=== PATIENT | female | born 1985 | race Caucasian/White ===

== ENCOUNTER 2016-07-24 05:31 | Emergency (ER) | payer OTHER ==
[2016-07-24 05:43] VITALS: BMI 23.3
--- NOTE | 2016-07-24 06:33 | PDOC ---
History of Present Illness - General History Source: Patient Exam Limitations: No Limitations - History of Present Illness Initial Comments: 07/24/16 06:50 The patient is a 31 year old female with no significant past medical history who presents to the ED with 1 day of lower abdominal pain. Patient denies nausea , vomiting, or diarrhea. Denies lack of appetite. The patient denies fever, chills, cough, SOB, chest pain, and palpitations. Allergies: NKDA Social History: No alcohol, tobacco, or drug use reported. Past Surgical History: s/p tubal ligation PCP: Dr. Pedrito Monroy <Christianne Melendez - Last Filed: 07/24/16 06:50> <Angie Jones - Last Filed: 07/26/16 03:35> - General Chief Complaint: Pain, Acute Stated Complaint: ABDOMINAL PAIN Time Seen by Provider: 07/24/16 05:33 Past History <Christianne Melendez - Last Filed: 07/24/16 06:50> - Surgical History Abdominal Surgery: Yes (partial lower boel removed) - Reproductive History Is Patient Now?: No - Psycho/Social/Smoking Cessation Hx Suicidal Ideation: No Smoking Status: Yes Smoking History: Never smoked Have you smoked in the past 12 months: No Number of Cigarettes Smoked Daily: 4 Information on smoking cessation initiated: No Hx Alcohol Use: No Drug/Substance Use Hx: No <Angie Jones - Last Filed: 07/26/16 03:35> - Past Medical History Allergies/Adverse Reactions: Allergies Allergy/AdvReac Type Severity Reaction Status Date / Time venom-honey bee Allergy Verified 07/24/16 05:42 [bee venom (honey bee)] Home Medications: Ambulatory Orders Ibuprofen 800 mg PO QID #30 tablet 07/24/16 Nitrofurantoin Monohyd/M-Cryst [Macrobid -] 100 mg PO BID #14 capsule 07/24/16 Review of Systems - Review of Systems Able to Perform ROS?: Yes Comments:: 07/24/16 06:50 CONSTITUTIONAL: Absent: fever, no chills, no fatigue EYES: Absent: visual changes ENT: Absent: ear pain, no sore throat CARDIOVASCULAR: Absent: chest pain, no palpitations RESPIRATORY: Absent: cough, no SOB GI: +lower abdominal pain Absent: no nausea, no vomiting, no constipation, no diarrhea GENITOURINARY: Absent: dysuria, no frequency, no hematuria MUSCULOSKELETAL: Absent: back pain, no arthralgia, no myalgia SKIN: Absent: rash NEURO: Absent: headache <Christianne Melendez - Last Filed: 07/24/16 06:50> *Physical Exam - Vital Signs Last Vital Signs Temp Pulse Resp BP Pulse Ox 98.2 F 103 H 20 139/76 100 07/24/16 05:42 07/24/16 05:42 07/24/16 05:42 07/24/16 05:42 07/24/16 05:42 - Physical Exam Comments: 07/24/16 06:51 GENERAL: Well-appearing, well-nourished. No apparent distress. HEENT: Normocephalic, atraumatic. PERRL, EOM intact. CARDIOVASCULAR: Normal S1, S2. Regular rate and rhythm. PULMONARY: Clear to auscultation bilaterally. ABDOMEN: Soft, non-distended, minimal periumbilical discomfort. No rebound or guarding. No organomegaly. Gassy bowel sounds. EXTREMITIES: Normal ROM in all four extremities. No gross deformities. SKIN: Warm, dry. No rash NEUROLOGICAL: No focal neurological deficits. <NoraChristianne - Last Filed: 07/24/16 06:50> - Vital Signs Last Vital Signs Temp Pulse Resp BP Pulse Ox 98.2 F 103 H 20 139/76 100 07/24/16 05:42 07/24/16 05:42 07/24/16 05:42 07/24/16 05:42 07/24/16 05:42 <Angie Jones - Last Filed: 07/26/16 03:35> ED Treatment Course - LABORATORY CBC & Chemistry Diagram: 07/24/16 07:17 07/24/16 07:17 <Angie Jones - Last Filed: 07/26/16 03:35> Medical Decision Making - Medical Decision Making 07/26/16 03:31 Pt comes with lower abd pain; She is tachy on arrival; she has hx of a left ovarian cyst and tubal ligation. Today labs are normal, bladder/pelvis sono is normal, and CT abd/pelvis is also normal. She has some leukocytes in her urine and she will be treated for a UTI. She will be referred to OB and to GI for follow up, as needed. <Angie Jones - Last Filed: 07/26/16 03:35> *DC/Admit/Observation/Transfer - Attestations Scribe Attestion: 07/24/16 06:51 Documentation prepared by Christianne Melendez, acting as biomedical specialist for Angie Jones MD/. <Christianne Melendez - Last Filed: 07/24/16 06:50> <Angie Jones - Last Filed: 07/26/16 03:35> Diagnosis at time of Disposition: Lower abdominal pain, UTI (urinary tract infection) - Discharge Dispostion Disposition: HOME Condition at time of disposition: Stable - Prescriptions Prescriptions: Ibuprofen 800 mg PO QID #30 tablet Nitrofurantoin Monohyd/M-Cryst [Macrobid -] 100 mg PO BID #14 capsule - Referrals Referrals: Sami Monroy [Primary Care Provider] - - Patient Instructions Printed Discharge Instructions: DI for Urinary Tract Infection (UTI), DI for Ovarian Cyst Additional Instructions: You're being treated for a urinary tract infection. The antibiotics that is being prescribed is Macrobid 100 mgtake 1 pill twice daily for 7 days. You may take ibuprofen 800 mg every 6-8 hours as needed for pain. Please follow-up with your primary care physician within the next week and return to the emergency department if your symptoms persist, worsen, or new symptoms arise. - Post Discharge Activity Work/School Note: Back to Work
[2016-07-24 07:28] LABS: BASOPHIL 0.5 % (0-2.0); EOSINOPHIL 4.1 % (0-4.5); MCH 29.3 pg (25.7-33.7); MCHC 33.9 g/dl (32.0-36.0); MEAN CELL VOLUME 86.4 fl (80-96); NEUTROPHILS 58.6 % (42.8-82.8); PLATELET COUNT 162 K/MM3 (134-434); RDW 13.7 % (11.6-15.6); WHITE BLOOD COUNT 8.8 K/mm3 (4.0-10.0)
[2016-07-24 07:48] LABS: URINE APPEARANCE SLCLOUDY; URINE BILIRUBIN NEGATIVE (NEGATIVE); URINE BLOOD NEGATIVE (NEGATIVE); URINE COLOR YELLOW; URINE GLUCOSE (UA) NEGATIVE (NEGATIVE); URINE KETONE NEGATIVE (NEGATIVE); URINE NITRITE NEGATIVE (NEGATIVE); URINE PROTEIN NEGATIVE (NEGATIVE); URINE UROBILINOGEN NEGATIVE E.U./dl (0.2-1.0)
[2016-07-24 07:50] LABS: URINE LEUK ESTERASE 1+ (NEGATIVE)
[2016-07-24 07:51] LABS: URINE BACTERIA RARE /hpf (NONE SEEN); URINE MUCUS RARE; URINE RBC 2 /hpf (0-3); URINE WBC 3 /hpf (3-5)
[2016-07-24 07:56] LABS: ALBUMIN 4.4 g/dl (3.4-5.0); ALK PHOS 78 U/L (45-117); ANION GAP 8 (8-16); BILIRUBIN,TOTAL 0.3 mg/dL (0.2-1.0); CALCIUM 9.5 mg/dL (8.5-10.1); CO2 29 mmol/L (21-32); COCKROFT - GAULT 115.6595; CREATININE 0.7 mg/dL (0.55-1.02); GLUCOSE,RANDOM 76 mg/dL (74-106); SGOT/AST 13 U/L (15-37); SGPT/ALT 23 U/L (12-78)
[2016-07-24] MEDS ORDERED: IBUPROFEN 400 MG TABLET (FP) PO ONE ×2 (09:55→09:57)
[2016-07-24] MEDS ORDERED: NITROFURANTOIN MACROCRYSTAL 50 MG CAPSULE (FP) ONE (09:56)
[2016-07-24] MEDS ORDERED: NITROFURANTOIN MACROCRYSTAL 50 MG CAPSULE (FP) PO SCH (10:00)
--- NOTE | 2016-07-24 10:47 | PDOC ---
*Physical Exam - Vital Signs Last Vital Signs Temp Pulse Resp BP Pulse Ox 98.2 F 81 17 123/77 99 07/24/16 05:42 07/24/16 07:34 07/24/16 07:34 07/24/16 07:34 07/24/16 07:34 ED Treatment Course - LABORATORY CBC & Chemistry Diagram: 07/24/16 07:17 07/24/16 07:17 - ADDITIONAL ORDERS Additional order review: Laboratory Results 07/24/16 07/24/16 07/24/16 08:20 08:20 07:17 Sodium 142 Potassium 4.0 Chloride 105 Carbon Dioxide 29 Anion Gap 8 BUN 16 Creatinine 0.7 Creat Clearance w eGFR > 60 Random Glucose 76 Calcium 9.5 Total Bilirubin 0.3 AST 13 L ALT 23 Alkaline Phosphatase 78 Total Protein 7.0 Albumin 4.4 Lipase Cancelled 181 Urine Color Urine Appearance Urine pH Urine Protein Urine Glucose (UA) Urine Ketones Urine Blood Urine Nitrite Urine Bilirubin Urine Urobilinogen Ur Leukocyte Esterase Urine RBC Urine WBC Ur Epithelial Cells Urine Bacteria Urine Mucus Urine HCG, Qual Negative 07/24/16 07:17 Sodium Potassium Chloride Carbon Dioxide Anion Gap BUN Creatinine Creat Clearance w eGFR Random Glucose Calcium Total Bilirubin AST ALT Alkaline Phosphatase Total Protein Albumin Lipase Urine Color Yellow Urine Appearance Slcloudy Urine pH 6.0 Urine Protein Negative Urine Glucose (UA) Negative Urine Ketones Negative Urine Blood Negative Urine Nitrite Negative Urine Bilirubin Negative Urine Urobilinogen Negative Ur Leukocyte Esterase 1+ H Urine RBC 2 Urine WBC 3 Ur Epithelial Cells Few Urine Bacteria Rare Urine Mucus Rare Urine HCG, Qual 07/24/16 07:17 RBC 4.74 MCV 86.4 MCHC 33.9 RDW 13.7 MPV 10.0 Neutrophils % 58.6 Lymphocytes % 31.1 Monocytes % 5.7 Eosinophils % 4.1 Basophils % 0.5 - RADIOLOGY Radiology Studies Ordered: Category Date Time Status PELVIC / BLADDER US [US] Stat Ultrasound 07/24/16 09:54 Completed - Medications Given in the ED: ED Medications Discontinued Medications Generic Name Dose Route Start Last Admin Trade Name Freq PRN Reason Stop Dose Admin Ibuprofen 800 mg 07/24/16 09:55 07/24/16 10:00 Motrin - PO 07/24/16 09:56 800 mg ONCE ONE Administration Progress Note - Progress Note Progress Note: The patient was endorsed to me at [address] Veliz pending the CT scan of the abdomen and pelvis as well as labs. I have reviewed reviewed the labs and they are noted in the EMR. The CT scan of the abdomen and pelvis showed a left ovarian cyst with some free fluid in the cul-de-sac. I reevaluated the patient this morning. The patient had complaints of 2 days of lower abdominal pain located mostly in the suprapubic region. She had mild tenderness to palpation. An ultrasound of the pelvis and bladder was obtained to rule out ovarian torsion and there is in fact no ovarian torsion. The urine analysis was positive for white blood cells as well as leukoesterase. I will empirically treat her for a urinary tract infection and will discharge her on Macrobid 100 mg twice daily for 7 days. The patient was advised to follow-up with her primary care physician and return to the emergency department if her symptoms persist, worsen, or new symptoms arise. *DC/Admit/Observation/Transfer Diagnosis at time of Disposition: Lower abdominal pain, Urinary tract infection - Discharge Dispostion Disposition: HOME Condition at time of disposition: Stable Admit: No - Prescriptions Prescriptions: Ibuprofen 800 mg PO QID #30 tablet Nitrofurantoin Monohyd/M-Cryst [Macrobid -] 100 mg PO BID #14 capsule - Referrals Referrals: Sami Monroy [Primary Care Provider] - - Patient Instructions Printed Discharge Instructions: DI for Urinary Tract Infection (UTI), DI for Ovarian Cyst Additional Instructions: You're being treated for a urinary tract infection. The antibiotics that is being prescribed is Macrobid 100 mgtake 1 pill twice daily for 7 days. You may take ibuprofen 800 mg every 6-8 hours as needed for pain. Please follow-up with your primary care physician within the next week and return to the emergency department if your symptoms persist, worsen, or new symptoms arise. - Post Discharge Activity
[2016-07-24 11:02] VITALS: BP 125/77; PULSE 74; TEMP 98
== END 2016-07-24 11:04 | disposition home or self-care (01) ==
LOC: JER 05:31
DX: N39.0 Urinary tract infection, site not specified (principal); N83.202 Unspecified ovarian cyst, left side
CPT/HCPCS: 36415; 74176-TC; 76856-TC; 80053; 81003; 81015; 83690; 84703; 85025; 87086; 99285-25; Q9967